=== PATIENT | male | born 1955 | race Caucasian/White ===

== ENCOUNTER 2021-08-18 11:19 | Inpatient (IN) | payer MEDICARE ==
[~2021-08-18] VITALS: Ht 177.8 cm; Wt 88.5 kg
--- NOTE | 2021-08-18 11:30 | NUR ---
BIB private ambulance on 5150 hold from [facility] in [place] for medical clearance for MHU. Pt has already been medically clear at sending facility per report. Spoke with Reagan in MHU for bed assignment, but there are no MHU bed available. Pt was brought directly to room 4a, there is no 1:1 sitter available.
--- NOTE | 2021-08-18 11:40 | NUR ---
Per pt is medically clear and may be trans to MHU.
[2021-08-18] MEDS ORDERED: CYCL25CA2 PO (12:04)
[2021-08-18] MEDS ORDERED: QUET25TA PO (12:04)
[2021-08-18] MEDS ORDERED: METF-440 PO (12:05)
[2021-08-18] MEDS ORDERED: VENL37.510 PO (12:05)
[2021-08-18] MEDS ORDERED: FINA5TAB3 PO (12:05)
[2021-08-18] MEDS ORDERED: [UNRECOGNIZED DRUG - OTHER] (12:05)
[2021-08-18] MEDS ORDERED: ENTE0.5T11 PO (12:05)
[2021-08-18] MEDS ORDERED: VENL75TA4 PO (12:05)
[2021-08-18] MEDS ORDERED: PRAV20TA4 PO (12:05)
[2021-08-18] MEDS ORDERED: GLYCOPYRROLATE PO (12:05)
[2021-08-18] MEDS ORDERED: DONE10TA44 PO (12:05)
[2021-08-18] MEDS ORDERED: FAMO40TA7 PO (12:05)
--- NOTE | 2021-08-18 12:39 | NUR ---
Pt resting in gurney with NAD noted, pending MHU admission.
[2021-08-18] MEDS ORDERED: ZIPRASIDONE MESYLATE 20 MG VIAL IM ONE ×2 (14:03→14:15)
--- NOTE | 2021-08-18 14:10 | NUR ---
Pt agitated, combative and trying to get out of bed. Pt was medicated with Geodon as ordered. Sitter remains at bedside.
--- NOTE | 2021-08-18 14:35 | NUR ---
Pt is resting in [facility] with NAD noted at this time.
--- NOTE | 2021-08-18 15:30 | NUR ---
GPS:Nursing note: Admission: Received pt from ER. Pt initially was taken to [facility] in [place] then transferred to [facility]. Pt is on a 5150 for DTO. Per report Krissy felt he was going to hurt her, she barricaded herself and the pt was banging on the door. Pt psychiatrist is Dr. Gustafson and pot builder is Dr. Baumann. Pt received Geodon 10 mg IM in ER for severe agitation. He is a/o x 1, responds to name with eye opening. Pt is calm and drowsy due to injection. Oriented to the unit and admission packet given to patient.
[2021-08-18 15:34] VITALS: BP 140/80
[2021-08-18] MEDS ORDERED: MAG HYDROX/AL HYDROX/SIMETH 30 ML LIQUID UDC PO PRN (15:45)
[2021-08-18] MEDS ORDERED: TEMAZEPAM 7.5 MG CAPSULE PO PRN (15:45)
[2021-08-18] MEDS ORDERED: ACETAMINOPHEN 325 MG TABLET PO PRN (15:45)
[2021-08-18] MEDS ORDERED: MAGNESIUM HYDROXIDE 30 ML LIQUID UDC PO PRN (15:45)
--- NOTE | 2021-08-18 15:45 | NUR ---
Pt trans to MHU, NAD noted.
[2021-08-18] MEDS ORDERED: CYCL100C8 PO (17:04)
[2021-08-18] MEDS ORDERED: VENL150C2 PO (17:04)
[2021-08-18] MEDS ORDERED: MAGN133T PO (17:05)
[2021-08-18 20:05] VITALS: BP 121/80
--- NOTE | 2021-08-18 23:55 | NUR ---
received to care, lying in bed, initially asleep. became aggressive, and combative, when staff attempted to change his diaper, requiring 2 staff to assist. he continued to be increasingly restless. PRN restoril was given at 2321, in pudding. he was given another spoonful of pudding, but he spit it out, and became aggressive. a sof now, he appears asleep. no distress noted. will continue to monitor closely.
[2021-08-19] MEDS: LORAZEPAM 1 MG TABLET PO PRN (05:00)
--- NOTE | 2021-08-19 05:00 | NUR ---
asssisted with diaper change, and up in nguyen chair. was combative with care. PRN ativan given for agitation.
--- NOTE | 2021-08-19 06:57 | NUR ---
slept 4.5 hours total. appears calmer, now.
[2021-08-19 07:30] VITALS: BP 98/66
[2021-08-19 08:08] LABS: BILIRUBIN,TOTAL 0.6 mg/dL (0.2-1.0); CREATININE 1.5 mg/dL (0.6-1.3); POTASSIUM 4.6 mmol/L (3.5-5.1); TOTAL PROTEIN, SERUM 8.1 g/dL (6.4-8.2)
--- NOTE | 2021-08-19 09:15 | NUR ---
GPS: Nursing note: Pt is calm, no signs of acute distress or discomfort at this time. Spoke with pt's Krissy and asked her to bring Eitan's home medications in specific the antirejection medication Cyclosporine because we are unable to attain from pharmacy at [facility]. Krissy agreed and understood instruction, she will be bringing his home medications during visiting hours today 08/19/21.
[2021-08-19] MEDS ORDERED: ENTECAVIR 0.5 MG PO SCH (09:30)
[2021-08-19] MEDS: FINASTERIDE 5 MG TABLET PO SCH (11:19)
--- NOTE | 2021-08-19 11:57 | NUR ---
MOY Initial Discharge Plan Patient currently resides at home with his at [address] [place] [id number] ([phone]). MOY called and spoke with pt's , Noy ([phone]) who stated pt will likely admit to [facility] in [place] or [place]. MOY will continue to work with pt, family, and MD to ensure a safe and proper discharge.
[2021-08-19] MEDS ORDERED: HOME MED MISCELLANEOUS XX SCH (12:15)
[2021-08-19] MEDS ORDERED: QUETIAPINE FUMARATE 25 MG TABLET PO PRN (12:30)
--- NOTE | 2021-08-19 12:44 | NUR ---
SW Family Contact SW called and spoke with pt's , Noy ([phone]) and discussed treatment and discharge plan. Pt's stated pt will be discharged to either [facility] or [place]. SW will coordinate appropriate placement and communicate with Nadeem.
[2021-08-19] MEDS: busPIRone 5 MG TABLET PO SCH ×2 (12:48→17:21)
[2021-08-19] MEDS: QUETIAPINE FUMARATE 25 MG TABLET PO SCH ×2 (12:48→17:22)
[2021-08-19] MEDS: VENLAFAXINE XR 37.5 MG CAP.SR.24H PO SCH (13:28)
[2021-08-19] MEDS: ENTECAVIR 0.5 MG PO SCH (13:28)
[2021-08-19] MEDS: PROTEIN PO SCH ×2 (13:28→17:25)
[2021-08-19] MEDS: CYCLOSPORINE PO SCH ×2 (13:29→21:08)
--- NOTE | 2021-08-19 14:04 | NUR ---
GPS:Nursing note: Pt's Krissy came to visit from [phone]. Attempted to give pt his medications but pt kept spitting out the four small cyclosporine capsules. Contacted pharmacy to get replacement 1 large capsule with equal amount of dosage brought from home by . Pt chewed soft gel and spit out the encapsulating form. All other medications crushed and given with pudding but pt kept spitting out. approximately 30-35% may have actually been ingested. Pt was combative, uncooperative, unresponsive to command and very agitated.
--- NOTE | 2021-08-19 14:07 | NUR ---
Treatment Plan Pt unable to sign treatment plan due to disorganized thought process.
--- NOTE | 2021-08-19 14:12 | NUR ---
Firearms Report: Chemistry Physics Teacher completed and submitted a [employer] firearms report for 5150 grave disability certifications. A copy of report has been placed in patient chart.
[2021-08-19 16:00] VITALS: BP 111/71
[2021-08-19] MEDS ORDERED: GLYCOPYRROLATE 1 MG PO SCH (17:00)
[2021-08-19] MEDS: METFORMIN HCL 500 MG TABLET PO SCH (17:21)
[2021-08-19] MEDS: GLYCOPYRROLATE 1 MG TABLET PO SCH (17:22)
[2021-08-19] MEDS ORDERED: PRAVASTATIN SODIUM PO SCH (18:00)
[2021-08-19] MEDS: ATORVASTATIN 10 MG TABLET PO SCH (21:08)
[2021-08-19 21:20] VITALS: BP 94/61
[2021-08-20 07:17] LABS: HEMATOCRIT 41.5 % (36.7-47.1); MEAN CORPUSCULAR HEMOGLOBIN 30.8 uug (23.8-33.4); MEAN CORPUSCULAR VOLUME 89.6 fL (73.0-96.2); PLATELET COUNT (AUTO) 300 K/uL (152-348)
[2021-08-20 07:30] VITALS: BP 108/83
[2021-08-20 07:33] LABS: CREATININE 1.9 mg/dL (0.6-1.3); MAGNESIUM 2.6 mg/dL (1.8-2.4); POTASSIUM 4.2 mmol/L (3.5-5.1)
[2021-08-20] MEDS ORDERED: FAMOTIDINE 20 MG TABLET PO SCH (09:00)
[2021-08-20] MEDS: PROTEIN PO SCH ×2 (09:00→18:00)
--- NOTE | 2021-08-20 11:33 | NUR ---
GPS: Received a call from [facility] dementia care, Monae Núñez NP. reported to HOTEL ATTENDANT that pt has been refusing medications, spitting it out after giving medication. HOTEL ATTENDANT more concerned with the cyclosporine medication for liver transplant anti-rejection. HOTEL ATTENDANT will be calling back if cyclosporine softgel can be squeezed out the liquid from it and be easily given to pt.
--- NOTE | 2021-08-20 12:17 | NUR ---
SW Family Contact MOY met with pt's , Noy ([phone]) and discussed treatment and discharge plan. Noy provided copy of DPOA documents and it is placed in the patient's chart. MOY discussed discharge planning with Noy. MOY informed that the psychiatrist recommended SNF for the patient upon discharge. Noy agreed with this plan. SW will coordinate appropriate SNF placement for the patient.
[2021-08-20] MEDS: METFORMIN HCL 500 MG TABLET PO SCH (12:18)
[2021-08-20] MEDS: FINASTERIDE 5 MG TABLET PO SCH (12:18)
[2021-08-20] MEDS: GLYCOPYRROLATE 1 MG TABLET PO SCH ×2 (12:20→17:59)
[2021-08-20] MEDS: QUETIAPINE FUMARATE 25 MG TABLET PO SCH ×3 (12:43→17:58)
[2021-08-20] MEDS: busPIRone 5 MG TABLET PO SCH ×3 (12:44→17:58)
[2021-08-20] MEDS: VENLAFAXINE XR 37.5 MG CAP.SR.24H PO SCH (12:44)
[2021-08-20] MEDS: ENTECAVIR 0.5 MG PO SCH (12:47)
[2021-08-20] MEDS: CYCLOSPORINE PO SCH ×2 (12:49→20:31)
--- NOTE | 2021-08-20 13:05 | NUR ---
GPS: sent 14 day hold faxed [facility] for this pt, signed by Dr. Gustafson. Pt with psychosis, agitation, striking act. Pt came for a visit.
--- NOTE | 2021-08-20 13:30 | NUR ---
MOY SNF Referral: MOY faxed patient's referral packet to [facility] ( ) attention to Denis for review. Addendum: 08/20/21 at 1500 by ROMY SCALES Patient is accepted at facility for placement
[2021-08-20 16:00] VITALS: BP 121/74
--- NOTE | 2021-08-20 16:01 | NUR ---
Gps/Land Surveying Survey Worker- came in to visit, information provided regarding progress. Routine meds. was administered increment with apple sauce/pudding re -offered couple of times . remains up in his nguyen-chair , safety reviewed , emphasized.
--- NOTE | 2021-08-20 16:59 | NUR ---
GPS: pt Noy came for a visit and brought DPOA and ADVANCE DIRECTIVE
[2021-08-20 20:22] VITALS: BP 112/74
[2021-08-20] MEDS: ATORVASTATIN 10 MG TABLET PO SCH (20:31)
--- NOTE | 2021-08-20 21:52 | NUR ---
GPS: Pt asleep upon rounds. Breathing easy and unlabored. Refused bedtime meds.earlier/refused to open his mouth despite numerous attempts by staff. Poor insight to present situation. Fall precautions observed. Incontinence care provided. Will continue to monitor. No striking out behavior noted.
[2021-08-21 07:30] VITALS: BP 122/75
[2021-08-21 07:55] LABS: CREATININE 1.8 mg/dL (0.6-1.3); POTASSIUM 4.5 mmol/L (3.5-5.1)
[2021-08-21] MEDS: busPIRone 5 MG TABLET PO SCH ×3 (08:46→16:26)
[2021-08-21] MEDS: FINASTERIDE 5 MG TABLET PO SCH (08:46)
[2021-08-21] MEDS: QUETIAPINE FUMARATE 25 MG TABLET PO SCH ×3 (08:46→16:26)
[2021-08-21] MEDS: VENLAFAXINE XR 37.5 MG CAP.SR.24H PO SCH (08:46)
[2021-08-21] MEDS: CYCLOSPORINE PO SCH ×2 (08:47→20:15)
[2021-08-21] MEDS: PROTEIN PO SCH ×2 (08:47→16:33)
[2021-08-21] MEDS: ENTECAVIR 0.5 MG PO SCH (08:48)
[2021-08-21] MEDS: GLYCOPYRROLATE 1 MG TABLET PO SCH ×2 (09:05→16:26)
--- NOTE | 2021-08-21 10:00 | NUR ---
Gps/Tape Stringer- Remains up in his nguyen-chair during his breakfast, assisted w/ his meals, , routine morning meds was given , administered in increment, w/ pudding and milk Pills given one at a time in intervals. patient hesitancy taking his pills was able to administered with lots of encouragement, prompting ,cueing. Kept patient by the Nurses Station, monitoring closely for safety. Occ. dry coughing noted . Patient was able to take his cyclosporin cap. , pt. tends to chew , instructed to swallow whole pt. has difficulty
--- NOTE | 2021-08-21 11:01 | NUR ---
MOY Family Contact: MOY spoke with patients Noy Martin ([phone]) and discussed discharge planning. Noy is agreeable with [facility] for placement.
--- NOTE | 2021-08-21 12:39 | NUR ---
Gps/Gerson Villafuerte () came in to visit, verbalized concerns , wants to make sure patient had taken all of his morning medications as schedule, was reassured.
--- NOTE | 2021-08-21 13:00 | NUR ---
Gps/Auto Service Writer- Noy(pt's ) was able to talked to Dr Gustafson this pm during visit.. Kept patient up in his nguyen-chair. Unable to collect urine specimen, r/t to bladder incontinence .
[2021-08-21 16:14] VITALS: BP 122/77
--- NOTE | 2021-08-21 17:48 | NUR ---
Gps/Manager Personnel Selection- Tried to feed patient for dinner by QUAN Boo, patient refused, spitting out his food. Fluids offered, able to take sips at a time . Will continue to provide adequate fluid intake , limited by occ. dry coughing , kept up in his nguyen-chair for safety, tried to thickened liq. pt. tends to not initiating to swallow , keeping food in his mouth and spits them out.
--- NOTE | 2021-08-21 18:23 | NUR ---
Gps/Deputy Editor In Chief- Patient was put back to bed, pm care was rendered.Patient was aggressive during his care trying to hit staff . Bed alarm set for safety
--- NOTE | 2021-08-21 18:26 | NUR ---
Gps/Model And Pattern Supervisor- Unable to collect urine specimen , incontinent of urine . Will attempt to collect a later time.
[2021-08-21 20:15] VITALS: BP 126/81
[2021-08-21] MEDS: ATORVASTATIN 10 MG TABLET PO SCH (20:15)
--- NOTE | 2021-08-22 06:41 | NUR ---
GPS: Pt.slept 6.45 last night. Now up on nguyen-chair as johnnie. Sips of water given as johnnie. with occassional coughing episodes noted. Awaiting swallow eval.
[2021-08-22 07:30] VITALS: BP 119/73
[2021-08-22] MEDS: QUETIAPINE FUMARATE 25 MG TABLET PO SCH ×3 (08:00→16:27)
[2021-08-22] MEDS: busPIRone 5 MG TABLET PO SCH ×3 (08:10→16:27)
[2021-08-22] MEDS: ENTECAVIR 0.5 MG PO SCH (08:10)
[2021-08-22] MEDS: FINASTERIDE 5 MG TABLET PO SCH (08:10)
[2021-08-22] MEDS: VENLAFAXINE XR 37.5 MG CAP.SR.24H PO SCH (08:10)
[2021-08-22] MEDS: PROTEIN PO SCH ×2 (08:11→16:28)
[2021-08-22] MEDS: GLYCOPYRROLATE 1 MG TABLET PO SCH ×2 (08:11→16:39)
[2021-08-22] MEDS: FAMOTIDINE 20 MG TABLET PO SCH (08:39)
--- NOTE | 2021-08-22 08:45 | NUR ---
Gps/Railroad Police Officer- Tried to assist patient with breakfast, refused, spits out foods. Routine am meds. tried to administered with apple sauce/pudding patient refusing to swallow keeping foods/meds. inside his mouth, kept HOB elevated. , offered sips of water. Patient was uncooperative, gets aggressive , patient grabs scratched blurb writer on her right upper arm , trying to hit .Kept up in his nguyen-chair for safety. Routine am meds. administered 1 pill at a time, few times was successful , spits out some. Patient has difficulty following directions.
[2021-08-22] MEDS: CYCLOSPORINE PO SCH ×2 (08:46→20:44)
--- NOTE | 2021-08-22 13:09 | NUR ---
Gps/Aligning Inspector- Navid Stout CHECKOUT SUPERVISOR ,in to see patient, informed of patient's labs. , as well as poor nutrional intake, spitting out foods, not following directions to swallow. as well as occ. coughing. Will continue to monitor.
--- NOTE | 2021-08-22 14:41 | NUR ---
Gps/Supervising Chef-Stayed up in his nguyen-chair, kept sitting upright. Fluids offered, encouraged, swallow precautions observed, r/t to occ. dry coughing, Routine pm meds. was administered crushed with applesauce, tried to thickened liquids to nectar , instructed to double swallow, constant cueing and encouragement.
[2021-08-22 16:00] VITALS: BP 115/73
--- NOTE | 2021-08-22 16:43 | NUR ---
Gps/Madhu- Noy() in to visit, wants to know how his day been , informed of the on and off coughing spells, as well as his fluid intake and meals not adequate pt. refusing to open his mouth, tends to hold foods in his mouth and spits them out . asked for water, will try to offer to patient, reviewed extra careful in giving him liquids r/t to > coughing
--- NOTE | 2021-08-22 18:41 | NUR ---
Gps/Superintendent Generating Plant- asisted pt. with his dinner, was able to eat 25%, , took pm meds, crushed with apple sauce 300 ml water thickened., water was given by spoonful . Incontinent of urine, assisted back to bed 2 staff assisting, provide good skin care , keeping skin dry and clean , heels floated . Patient had been cooperative with the staff while visiting , speech remains confused, incoherent. Per patient was walking around with assist at home, with caregiver, and had been having on and off coughs which is not new per .
[2021-08-22 20:00] VITALS: BP 98/61
[2021-08-22] MEDS: LORAZEPAM 1 MG TABLET PO PRN (20:42)
[2021-08-22] MEDS: ATORVASTATIN 10 MG TABLET PO SCH (20:44)
--- NOTE | 2021-08-23 05:13 | NUR ---
Received the patient in bed, resting. PM medications needed to be crushed and slowly given to the patient when he woke up. The patient is confused and unable to follow directions. A slow , calm approach needed when dealing with this patient in order to prevent agitation and striking out at staff providing care. Patient sleep hours are 8.45 . This administrative underwriter will get patient up to chair this am ,if patient allows. Continuing to monitor for safety of patient as well as staff and for behavior escalation. Will also continue to offer fluids .
[2021-08-23 07:30] VITALS: BP 102/72
[2021-08-23] MEDS: CYCLOSPORINE PO SCH ×2 (08:24→20:04)
[2021-08-23] MEDS: ENTECAVIR 0.5 MG PO SCH (08:24)
[2021-08-23] MEDS: PROTEIN PO SCH ×2 (08:24→16:17)
[2021-08-23] MEDS: QUETIAPINE FUMARATE 25 MG TABLET PO SCH ×3 (08:25→16:17)
[2021-08-23] MEDS: busPIRone 5 MG TABLET PO SCH ×3 (08:25→16:17)
[2021-08-23] MEDS: VENLAFAXINE XR 37.5 MG CAP.SR.24H PO SCH (08:25)
[2021-08-23] MEDS: FINASTERIDE 5 MG TABLET PO SCH (08:25)
[2021-08-23] MEDS: FAMOTIDINE 20 MG TABLET PO SCH (08:25)
[2021-08-23] MEDS: GLYCOPYRROLATE 1 MG TABLET PO SCH ×2 (08:29→16:17)
--- NOTE | 2021-08-23 09:09 | NUR ---
GpsLvn- Remains up in his nguyen-chair, more alert ,awake, and interacting speech incoherent, bur able to say"i want some water" Assisted with his water, slightly thickened, . Routine meds, administered with some apple sauce, and half of his ensure supp .Following simple directions , needed prompting. Remains with occ. coughing.
--- NOTE | 2021-08-23 10:50 | NUR ---
Gps/Sheet Metal Worker Supervisor- Patient was taken to the bathroom 2 staff assisting, stiffness to extremities, tends to grabs during his care. . No Voiding noted was noted to be incontinent in his diaper. Taken to shower, , 2 staff assisting., good oral care was rendered. Noted some drainage in both eyes, no redness noted. Kept up in his nguyen- chair, more interactive, more alert, speech remans confused, and incoherent, laughing and talking no sense.
[2021-08-23] MEDS: GLUCERNA SHAKE VANILLA 237 ML CAN PO SCH ×2 (13:30→16:28)
--- NOTE | 2021-08-23 15:30 | NUR ---
Gps/Sports Bookmaker- Toileted with 2 staff assisting, noted incontinent of large amount of urine. Redness to his inner thighs r/t to diiaper indentations , good skin care provided kept skin dry , clean
[2021-08-23 16:00] VITALS: BP 114/57
--- NOTE | 2021-08-23 16:30 | NUR ---
Gps/Pecan Huller- Mumbles ,speech unclear, incoherent , confused. No aggressive behavior noted this pm. difficulty following directions.
--- NOTE | 2021-08-23 18:44 | NUR ---
Gps/Granite Chip Terrazzo Finisher- Taken to the bathroom in order to collect urine specimen, noted, patient was already incontinent in his diaper. Patient toileted 3 times maximum assist, more so this pm than earlier today. Patient very stiff, unable to stand up straight, difficulty following directions, patient's Noy tried to assist staff. No BM noted, fluids was offered encouraged all day . Patient is a total care , extremely needing maximum assist in all areas of his care . verbalized acceptance, feeling sorry to all the staff providing his care , claimed she observed hardship in providing his care , verbalized appreciation in all the care provided. Put back to bed, heels floated, z-guard cream applied to his groin .
[2021-08-23 20:02] VITALS: BP 111/62
[2021-08-23] MEDS: ATORVASTATIN 10 MG TABLET PO SCH (20:04)
[2021-08-23] MEDS: Z GUARD REMEDY PASTE 57 GM TUBE TOP PRN (20:49)
[2021-08-24] MEDS: Z GUARD REMEDY PASTE 57 GM TUBE TOP PRN ×2 (04:41→22:00)
--- NOTE | 2021-08-24 05:59 | NUR ---
GPS: Pt.slept 8.15 last night. Up on nguyen-chair in front of nurses station for safety. No striking out behavior noted. Fluids encouraged and johnnie.fairly. Aspiration precautions observed. Denies SOB. Incontinence care provided prn.
[2021-08-24 07:53] VITALS: BP 113/75
[2021-08-24] MEDS: VENLAFAXINE XR 37.5 MG CAP.SR.24H PO SCH (08:11)
[2021-08-24] MEDS: QUETIAPINE FUMARATE 25 MG TABLET PO SCH ×3 (08:12→16:44)
[2021-08-24] MEDS: busPIRone 5 MG TABLET PO SCH ×3 (08:12→16:44)
[2021-08-24] MEDS: GLYCOPYRROLATE 1 MG TABLET PO SCH ×2 (08:12→16:43)
[2021-08-24] MEDS: FAMOTIDINE 20 MG TABLET PO SCH (08:12)
[2021-08-24] MEDS: FINASTERIDE 5 MG TABLET PO SCH (08:12)
[2021-08-24] MEDS: CYCLOSPORINE PO SCH ×2 (08:13→22:03)
[2021-08-24] MEDS: PROTEIN PO SCH ×2 (08:14→16:45)
[2021-08-24] MEDS: ENTECAVIR 0.5 MG PO SCH (08:15)
[2021-08-24] MEDS: GLUCERNA SHAKE VANILLA 237 ML CAN PO SCH ×3 (08:27→16:45)
--- NOTE | 2021-08-24 12:19 | NUR ---
Patient's 5250 was upheld today in the probable cause hearing.
--- NOTE | 2021-08-24 14:20 | NUR ---
Social Work Discharge Plan Pt will return to [facility], [address] [address] [address] Gustafson feels pt is stable for discharge. Dr Gustafson will follow patient at [place]. He will be seen by facility television engineer at [facility]. Patient will go home via ambulance. Pt has Lewy body dementia and is disoriented so cannot respond or answer questions. His aggressive behavior has improved on the unit with psychotropic medication. Discharge is confirmed for 08/25/21.
[2021-08-24 15:49] VITALS: BP 120/89
[2021-08-24 20:04] VITALS: BP 106/65
[2021-08-24] MEDS: ATORVASTATIN 10 MG TABLET PO SCH (22:03)
[2021-08-24] MEDS: LORAZEPAM 1 MG TABLET PO PRN (22:03)
--- NOTE | 2021-08-24 23:30 | NUR ---
received to care, up in nguyen chair for safety. compliant with medications and staff direction. PRN ativan given at 2232 for restlessness. assisted to bed around 2300. as of now, appears to be asleep. no distress noted. will continue to monitor closely.
--- NOTE | 2021-08-24 23:30 | NUR ---
received to care, up in gerichair, confused and restless, talking to self. compliant with medications, and staff assist. no aggression noted. PRN ativan given at 2203. assisted to bed earlier. as of now, he is asleep. no distress noted. will continue to monitor closely.
[2021-08-25 07:30] VITALS: BP 132/88
[2021-08-25] MEDS: busPIRone 5 MG TABLET PO SCH ×2 (08:55→12:13)
[2021-08-25] MEDS: FINASTERIDE 5 MG TABLET PO SCH (08:55)
[2021-08-25] MEDS: QUETIAPINE FUMARATE 25 MG TABLET PO SCH ×2 (08:55→12:13)
[2021-08-25] MEDS: GLUCERNA SHAKE VANILLA 237 ML CAN PO SCH ×2 (08:55→12:13)
[2021-08-25] MEDS: FAMOTIDINE 20 MG TABLET PO SCH (08:55)
[2021-08-25] MEDS: VENLAFAXINE XR 37.5 MG CAP.SR.24H PO SCH (08:55)
[2021-08-25] MEDS: ENTECAVIR 0.5 MG PO SCH (08:56)
[2021-08-25] MEDS: PROTEIN PO SCH (08:56)
[2021-08-25] MEDS: CYCLOSPORINE PO SCH (08:56)
[2021-08-25] MEDS: GLYCOPYRROLATE 1 MG TABLET PO SCH (08:58)
--- NOTE | 2021-08-25 13:30 | NUR ---
GPS: Nursing Notes: Discharge Notes: Patient is awake and responding to his name, compliant with his medications, allowing staff to care for him, needs assistance with ADL's, total care, denies SI/HI, denies AH/VH, denies pain or discomfort, denies SOB. Patient discharge to [facility] [place] [address] [place] [address] , report given to facility's nurse - MICHAEL Whitehead clerical supervisor, his - Noy took his valuables and patient's own medications with her, transported to facility via ambulance. Patient will follow up with Dr. Gustafson (psychiatrist) and Facility's diesel engine specialist at the facility for aftercare.
== END 2021-08-25 13:30 | DRG 885 ==
LOC: ER 11:19 → GPS 14:53
PROVIDERS: ADMIT Psychiatry & Neurology Psychosomatic Medicine; ATTEND Nurse Practitioner Family
DX: F29 Unspecified psychosis not due to a substance or known physiological condition (principal); N17.9 Acute kidney failure, unspecified; N18.9 Chronic kidney disease, unspecified; F02.81 Dementia in other diseases classified elsewhere, unspecified severity, with behavioral disturbance; Z94.4 Liver transplant status; F23 Brief psychotic disorder; G31.83 Neurocognitive disorder with Lewy bodies; F32.9 Major depressive disorder, single episode, unspecified; F41.9 Anxiety disorder, unspecified; G89.29 Other chronic pain; N40.0 Benign prostatic hyperplasia without lower urinary tract symptoms; E11.22 Type 2 diabetes mellitus with diabetic chronic kidney disease; Z79.84 Long term (current) use of oral hypoglycemic drugs; Z20.822 Contact with and (suspected) exposure to COVID-19
CPT/HCPCS: 36415; 83735; 85025; A4663; J3486; J7515